=== PATIENT | male | born 1955 | race Caucasian/White ===

== ENCOUNTER 2020-10-14 00:08 | Inpatient (IN) | payer MEDICARE ==
[2020-10-14] MEDS ORDERED: cefTRIAXone\\ROCEPHIN 2 GM VIAL ONE (00:33)
[2020-10-14] MEDS ORDERED: VANCOMYCIN 1.75 GM/350 ML BAG 1.75 GM in Premix Bag 1 BAG IVPB SCH (01:15)
[2020-10-14] MEDS ORDERED: Morphine 4 MG/ML VIAL ONE (02:18)
[2020-10-14] MEDS ORDERED: Acetaminophen 650 MG Suppository PR PRN (04:00)
[2020-10-14 04:14] VITALS: BMI 26.4
[2020-10-14 05:22] LABS: Lactic Acid 1.1 mmol/L (0.5-2.2)
[2020-10-14] MEDS: Sodium Chloride 0.9% 1,000 ML IV SCH ×2 (05:25→21:32)
[2020-10-14 05:27] LABS: CRP (Inflammatory) 20.14 mg/dL (= or < 0.5); Magnesium 1.9 mg/dL (1.6-2.6)
[2020-10-14] MEDS ORDERED: Acetaminophen 325 MG TAB ONE ×2 (05:33→11:40)
[2020-10-14] MEDS: Acetaminophen 325 MG TAB PO PRN ×2 (05:36→11:48)
[2020-10-14] MEDS ORDERED: Famotidine/PF 20 mg/2ml Vial ONE (08:25)
[2020-10-14] MEDS: Famotidine/PF 20 mg/2ml Vial SLOW IVP SCH ×2 (08:37→21:32)
[2020-10-14 11:36] LABS: #Eosinphils 0.4 thou/uL (0.0-0.7); #Lymphocytes 1.9 thou/uL (1.20-3.40); #Monocytes 1.1 thou/uL (0.11-0.59); #Neutrophils 10.3 thou/uL (1.40-6.50); %Basophils 0.3 % (0.0-1.0); %Eosinophils 3.2 % (0.0-10.0); %Lymphocytes 13.5 % (21.0-51.0); %Monocytes 7.9 % (0.0-10.0); Hemoglobin 12.1 g/dL (14.0-18.0); Mean Corpuscular HGB CONC 33.9 g/dL (32.0-36.0); Mean Corpuscular Hemoglobin 31.8 pg (27.0-31.0); Mean Corpuscular Volume 93.8 fL (78.0-98.0); Mean Platelet Volume 6.2 fL (7.4-10.4); Platelet Count 441 thou/uL (130-400); RBC Distribution Width 11.3 % (11.5-14.5); White Blood Cell (WBC) Count 13.7 thou/uL (4.8-10.8)
[2020-10-14 11:58] LABS: Anion Gap 13 mmol/L (10-20); BUN (Urea Nitrogen) 16 mg/dL (8.4-25.7); Calc. Creatinine Clearance 105 mL/min (70-130); Calcium 8.5 mg/dL (7.8-10.44); Carbon Dioxide 23 mmol/L (23-31); Chloride 104 mmol/L (98-107); Glucose 91 mg/dL (80-115); Sodium 136 mmol/L (136-145)
[2020-10-14] MEDS ORDERED: Vancomycin 1 GM in Premix Bag 1 BAG IVPB SCH (13:00)
[2020-10-14] MEDS ORDERED: Vancomycin 1 GM/200 ML BAG ONE (13:29)
[2020-10-14] MEDS ORDERED: Heparin 1,000 UNITS/ML VIAL ONE (15:35)
[2020-10-14] MEDS: Ketorolac Tromethamine 30 MG/ML VIAL IVP PRN (18:33)
[2020-10-15 01:24] LABS: SARS-CoV-2 PCR by NAA Not Detected (NotDetected)
[2020-10-15] MEDS ORDERED: cefTRIAXone\\ROCEPHIN 1 GM in Sodium Chloride 0.9% 100 ML IVPB SCH (02:00)
[2020-10-15 05:44] LABS: #Eosinphils 0.4 thou/uL (0.0-0.7); #Lymphocytes 1.5 thou/uL (1.20-3.40); #Monocytes 0.9 thou/uL (0.11-0.59); #Neutrophils 11.7 thou/uL (1.40-6.50); %Basophils 0.3 % (0.0-1.0); %Eosinophils 2.7 % (0.0-10.0); %Lymphocytes 10.1 % (21.0-51.0); %Monocytes 6.2 % (0.0-10.0); %Neutrophils 80.8 % (42.0-75.0); Hemoglobin 11.8 g/dL (14.0-18.0); INR-International Normal Ratio 1.1; Mean Corpuscular HGB CONC 31.4 g/dL (32.0-36.0); Mean Corpuscular Volume 92.4 fL (78.0-98.0); Mean Platelet Volume 6.4 fL (7.4-10.4); PTT 31.2 sec (22.9-36.1); Platelet Count 486 thou/uL (130-400); Prothrombin Time 14.4 sec (12.0-14.7); RBC Distribution Width 11.3 % (11.5-14.5); Red Blood Cell (RBC) Count 4.06 mill/uL (4.70-6.10); White Blood Cell (WBC) Count 14.5 thou/uL (4.8-10.8)
[2020-10-15 06:00] LABS: Anion Gap 11 mmol/L (10-20); BUN (Urea Nitrogen) 14 mg/dL (8.4-25.7); Calc. Creatinine Clearance 100 mL/min (70-130); Calcium 8.7 mg/dL (7.8-10.44); Carbon Dioxide 26 mmol/L (23-31); Chloride 103 mmol/L (98-107); Glucose 100 mg/dL (80-115); Potassium 4.1 mmol/L (3.5-5.1); Sodium 136 mmol/L (136-145)
[2020-10-15] MEDS: Ketorolac Tromethamine 30 MG/ML VIAL IVP PRN ×2 (06:09→19:11)
[2020-10-15] MEDS: Famotidine/PF 20 mg/2ml Vial SLOW IVP SCH ×2 (08:08→21:00)
[2020-10-15] MEDS: Acetaminophen 325 MG TAB PO PRN (10:57)
[2020-10-15 12:22] LABS: Vancomycin, Trough 4.6 ug/mL
[2020-10-15] MEDS: Sodium Chloride 0.9% 1,000 ML IV SCH (15:49)
[2020-10-16] MEDS: Ketorolac Tromethamine 30 MG/ML VIAL IVP PRN ×3 (01:57→20:36)
[2020-10-16] MEDS: Acetaminophen 325 MG TAB PO PRN ×2 (08:31→18:06)
[2020-10-16] MEDS: Vancomycin 1.5 GRAM/300 ML BAG 1.5 GM in Premix Bag 1 BAG IVPB SCH ×2 (08:31→20:36)
[2020-10-16] MEDS ORDERED: Vancomycin 1 GM in Premix Bag 1 BAG IVPB SCH (09:00)
[2020-10-17] MEDS: Ketorolac Tromethamine 30 MG/ML VIAL IVP PRN ×2 (05:35→18:20)
[2020-10-17 06:06] LABS: #Eosinphils 0.4 thou/uL (0.0-0.7); #Lymphocytes 1.7 thou/uL (1.20-3.40); #Monocytes 0.7 thou/uL (0.11-0.59); #Neutrophils 6.7 thou/uL (1.40-6.50); %Basophils 0.3 % (0.0-1.0); %Eosinophils 4.2 % (0.0-10.0); %Lymphocytes 17.8 % (21.0-51.0); %Monocytes 7.4 % (0.0-10.0); %Neutrophils 70.3 % (42.0-75.0); Hemoglobin 12.3 g/dL (14.0-18.0); Mean Corpuscular HGB CONC 33.2 g/dL (32.0-36.0); Mean Corpuscular Hemoglobin 30.7 pg (27.0-31.0); Mean Corpuscular Volume 92.2 fL (78.0-98.0); Mean Platelet Volume 6.4 fL (7.4-10.4); Platelet Count 494 thou/uL (130-400); RBC Distribution Width 11.1 % (11.5-14.5); Red Blood Cell (RBC) Count 4.02 mill/uL (4.70-6.10); White Blood Cell (WBC) Count 9.5 thou/uL (4.8-10.8)
[2020-10-17 06:24] LABS: ALT (SGPT) 43 U/L (8-55); AST (SGOT) 35 U/L (5-34); Albumin 3.2 g/dL (3.4-4.8); Alkaline Phosphatase 64 U/L (40-110); Anion Gap 14 mmol/L (10-20); BUN (Urea Nitrogen) 11 mg/dL (8.4-25.7); Bilirubin, Total 0.6 mg/dL (0.2-1.2); Calc. Creatinine Clearance 104 mL/min (70-130); Calcium 8.7 mg/dL (7.8-10.44); Carbon Dioxide 23 mmol/L (23-31); Chloride 105 mmol/L (98-107); Globulin 3.7 g/dL (2.4-3.5); Glucose 93 mg/dL (80-115); Potassium 3.9 mmol/L (3.5-5.1); Protein, Total 6.9 g/dL (5.8-8.1); Sodium 138 mmol/L (136-145)
[2020-10-17] MEDS: Vancomycin 1.5 GRAM/300 ML BAG 1.5 GM in Premix Bag 1 BAG IVPB SCH ×2 (09:07→20:11)
[2020-10-17] MEDS: Acetaminophen 325 MG TAB PO PRN ×2 (09:18→23:44)
[2020-10-17 19:58] LABS: Vancomycin, Trough 20.1 ug/mL
[2020-10-18] MEDS: Vancomycin 1.5 GRAM/300 ML BAG 1.5 GM in Premix Bag 1 BAG IVPB SCH (08:41)
[2020-10-18] MEDS: Acetaminophen 325 MG TAB PO PRN (08:47)
[2020-10-18] MEDS ORDERED: CEFAZOLIN 2 GM in Premix Bag 1 BAG IVPB SCH (13:00)
[2020-10-18] MEDS ORDERED: Amlodipine 10 MG TAB PO SCH (14:30)
[2020-10-18] MEDS ORDERED: Hydrochlorothiazide 25 MG TAB PO SCH (14:30)
[2020-10-18 16:37] VITALS: BP 158/95; TEMP 98.4
[2020-10-19] MEDS ORDERED: Hydrochlorothiazide 25 MG TAB PO SCH (09:00)
[2020-10-19] MEDS ORDERED: Amlodipine 10 MG TAB PO SCH (09:00)
== END 2020-10-18 16:30 | disposition home health service (06) | DRG 871 ==
LOC: ERS 00:08 → ERHOLD 01:59 → T4-B 15:38
PROVIDERS: ADMIT Student in an Organized Health Care Education/Training Program; ATTEND Internal Medicine
PROC: 0J993ZZ Drainage of Buttock Subcutaneous Tissue and Fascia, Percutaneous Approach (ICD-10-PCS; principal; 2020-10-15)
PROC: 02HV33Z Insertion of Infusion Device into Superior Vena Cava, Percutaneous Approach (ICD-10-PCS; 2020-10-18)
DX: A41.01 Sepsis due to Methicillin susceptible Staphylococcus aureus (principal); G06.1 Intraspinal abscess and granuloma; M46.20 Osteomyelitis of vertebra, site unspecified; I10 Essential (primary) hypertension; M54.9 Dorsalgia, unspecified; G89.29 Other chronic pain; Z82.3 Family history of stroke; Z83.3 Family history of diabetes mellitus; Z82.49 Family history of ischemic heart disease and other diseases of the circulatory system
CPT/HCPCS: 36415; 36569; 72158; 77002; 77012; 80048; 80053; 80202; 83605; 83735; 85025; 85610; 85730; 86140; 87070; 87077; 87186; 87205; 87635; 96365; 96366; 96367; 96375; C1751; J0690; J0696; J1644; J1885; J2270; J3370; S0028; U0003; U0005

== ENCOUNTER 2020-11-22 16:50 | Outpatient (CLI) | payer MEDICARE ==
[~2020-11-22 16:50] MED LIST: Magnevist 469MG/ML 20 ML VIAL ONE
== END 2020-11-22 16:51 | disposition home or self-care (01) ==
LOC: TBSIIMAG 16:50
PROVIDERS: ATTEND Physician Assistant
DX: L02.212 Cutaneous abscess of back [any part, except buttock and flank] (principal); M48.061 Spinal stenosis, lumbar region without neurogenic claudication; M48.07 Spinal stenosis, lumbosacral region
CPT/HCPCS: 72158; A9579